=== PATIENT | male | born 1985 | race Caucasian/White ===

== ENCOUNTER 2020-11-09 19:22 | Emergency (ER) | payer SELFPAY ==
[~2020-11-09] VITALS: Ht 165.1 cm; Wt 79.4 kg
[2020-11-09 19:29] VITALS: BP 132/86
--- NOTE | 2020-11-09 19:32 | NUR ---
TO LOBBY A/W BED AMBULATORY
[2020-11-09] MEDS ORDERED: diphenhydrAMINE 50 MG/ML VIAL IM ONE (20:20)
[2020-11-09] MEDS ORDERED: FAMOTIDINE 20 MG TAB PO ONE (20:20)
[2020-11-09] MEDS ORDERED: DEXAMETHASONE 10 MG/ML VIAL IM ONE (20:20)
[2020-11-09] MEDS ORDERED: EPIN1KIT31 IM (20:42)
[2020-11-09] MEDS ORDERED: FAMO-92 PO (20:42)
[2020-11-09] MEDS ORDERED: BEN50 PO (20:42)
[2020-11-09] MEDS ORDERED: CLIN300C2 PO (20:42)
--- NOTE | 2020-11-09 20:56 | NUR ---
no nursing intervention ordered by Dr. Floyd. pt d/c with [facility]. d/c education given. rx of epipen, pepcid, benadryl, cleocin given. opportunity to ask questions given and answered.
== END 2020-11-09 20:54 | disposition home or self-care (01) ==
LOC: MED 19:22
DX: T78.1XXA Other adverse food reactions, not elsewhere classified, initial encounter (principal); L23.89 Allergic contact dermatitis due to other agents; T36.0X5A Adverse effect of penicillins, initial encounter; Y92.89 Other specified places as the place of occurrence of the external cause
CPT/HCPCS: 96372; 99284; J1100; J1200

== ENCOUNTER 2020-11-10 21:18 | Emergency (ER) | payer SELFPAY ==
[~2020-11-10] VITALS: Ht 165.1 cm; Wt 79.4 kg
[~2020-11-10 21:18] MED LIST: BEN50 PO; CLIN300C2 PO; EPIN1KIT31 IM; FAMO-92 PO
[2020-11-10 21:30] VITALS: BP 155/81
--- NOTE | 2020-11-10 21:30 | NUR ---
TO BED AMBULATORY
--- NOTE | 2020-11-10 21:35 | NUR ---
BIB SELF 35 MALE, NO SOB, C/O BILATERAL FEET EXTENDING TO THE LEFT REDNESS W/ MINIMAL ITCHINESS, DENIES PAIN, AMBULATORY. PT STATES HE TOOK CLINDAMYCIN 300MG 1 TAB, THEN IT STARTED THE REDNESS. ALSO TOOK AMOXICILLIN LAST AND THURSDAY AND THE REDNESS STARTED.
[2020-11-10] MEDS ORDERED: diphenhydrAMINE 50 MG/ML VIAL IM ONE (22:20)
--- NOTE | 2020-11-10 22:56 | NUR ---
BENADRYL IM GIVEN ORDERED, TOLERATED WELL.
--- NOTE | 2020-11-10 23:33 | NUR ---
d/c with VSS. d/c education given. opportunity to ask questions given and answered. no rx given. follow with [facility] given.
== END 2020-11-10 23:34 | disposition home or self-care (01) ==
LOC: MED 21:18
DX: L25.8 Unspecified contact dermatitis due to other agents (principal); T36.0X5A Adverse effect of penicillins, initial encounter; Y92.89 Other specified places as the place of occurrence of the external cause
CPT/HCPCS: 96372; 99283; J1200

== ENCOUNTER 2020-11-13 09:07 | Emergency (ER) | payer SELFPAY ==
[~2020-11-13] VITALS: Ht 165.1 cm; Wt 79.4 kg
[2020-11-13 09:29] VITALS: BP 136/80
--- NOTE | 2020-11-13 09:42 | NUR ---
PATIENT AMBULATED TO BED 5.
--- NOTE | 2020-11-13 09:50 | NUR ---
35 YEAR OLD MALE COMPLAINS OF RASH ON FEET, HAND, AND GROIN AREA. PT STATES HE TOOK AMOXICILLIN FOR GUM INFECTION ON THURSDAY, AND HAD REACTION SO IT WAS SWITCHED TO CLINDAMYCIN, AND PT STATES HE TOOK LAST NIGHT AND HAS BEEN HAVING ITCHING IN HANDS SINCE MORNING. PT DENIES SOB. PT AOX4, BREATHING EVEN AND UNLABORED, SKIN WARM AND DRY. BED IN LOWEST POSITION, LOCKED, BED RAIL UPX1. PMH - DENIES ALLERGIES - AMOXICILLIN, CLINDAMYCIN
[2020-11-13 10:17] LABS: BASOPHILS % (AUTO) 0.3 % (0.0-2.0); EOSINOPHILS # (AUTO) 0.2 K/uL (0-0.4); EOSINOPHILS % (AUTO) 4.5 % (0.0-4.0); HEMATOCRIT 46.7 % (36-52); HEMOGLOBIN 15.8 g/dL (12.0-18.0); LYMPHOCYTES # (AUTO) 1.6 K/uL (2.0-11.5); LYMPHOCYTES % (AUTO) 30.2 % (20.5-51.1); MEAN CORPUSCULAR HEMOGLOBIN 31 pg (27-31); MEAN CORPUSCULAR HGB CONC 34 g/dL (33-37); MEAN CORPUSCULAR VOLUME 90.6 fL (80-94); MONOCYTES # (AUTO) 0.4 K/uL (0.8-1.0); MONOCYTES % (AUTO) 7.4 % (1.7-9.3); NEUTROPHILS % (AUTO) 57.6 % (42.2-75.2); PLATELET COUNT (AUTO) 313 K/uL (140-450); RED BLOOD CELL COUNT(AUTO) 5.16 MIL/uL (4.20-6.10); RED CELL DISTRIBUTION WIDTH 13.9 % (11.6-13.7); WHITE BLOOD COUNT (AUTO) 5.3 K/uL (4.8-10.8)
[2020-11-13 10:31] LABS: ALBUMIN 4.1 g/dL (3.4-5.0); ANION GAP 8.9 (8-16); CARBON DIOXIDE 31.6 mmol/L (21-32); CREATININE 1.1 mg/dL (0.6-1.3); MAGNESIUM 2.1 mg/dL (1.8-2.4); POTASSIUM 4.5 mmol/L (3.5-5.1); TOTAL BILIRUBIN 0.5 mg/dL (0.0-1.0)
[2020-11-13 11:08] VITALS: BP 135/78
--- NOTE | 2020-11-13 11:09 | NUR ---
Patient discharged with v/s stable. Written and verbal after care instructions about parethesia given and explained. Patient verbalized understanding. Ambulatory with steady gait. All questions addressed prior to discharge. Advised to follow up with PMD.
== END 2020-11-13 11:09 | disposition home or self-care (01) ==
LOC: MED 09:07
DX: T36.0X5A Adverse effect of penicillins, initial encounter (principal); R20.2 Paresthesia of skin; Z88.1 Allergy status to other antibiotic agents; Z79.899 Other long term (current) drug therapy; Y92.89 Other specified places as the place of occurrence of the external cause
CPT/HCPCS: 36415; 80053; 83735; 85025; 99283